=== PATIENT | female | born 1985 | race Two or more races ===

== ENCOUNTER 2018-05-14 15:13 | Emergency (ER) | payer OTHER ==
[~2018-05-14] VITALS: Ht 172.7 cm; Wt 65.8 kg
--- NOTE | 2018-05-14 15:18 | NUR ---
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
--- NOTE | 2018-05-14 15:22 | NUR ---
DR. MENDEZ AT BEDSIDE FOR EVAL.
[2018-05-14] MEDS ORDERED: IV NS 0.9% 1,000 ML BAG IV ONE (15:30)
--- NOTE | 2018-05-14 15:30 | NUR ---
PT LABS DRAWNED AND SENT TO LAB. AWAITING RESULTS.
[2018-05-14 15:32] LABS: EOSINOPHILS % (AUTO) 0.5 % (0.0-6.0); HEMATOCRIT 43 % (33-45); HEMOGLOBIN 13.8 g/dL (11.5-14.8); LYMPHOCYTES # (AUTO) 1.6 /CMM (0.8-4.8); LYMPHOCYTES % (AUTO) 30.1 % (20.0-44.0); MEAN CORPUSCULAR HGB CONC 32 g/dl (31.0-36.0); MEAN CORPUSCULAR VOLUME 82 fL (82-100); MONOCYTES # (AUTO) 0.5 /CMM (0.1-1.30); MONOCYTES % (AUTO) 9.8 % (2.0-12.0); NEUTROPHILS # (AUTO) 3.1 /CMM (1.8-8.9); NEUTROPHILS % (AUTO) 58.6 % (43.0-81.0); PLATELET COUNT (AUTO) 205 /CMM (150-450); RED BLOOD CELL COUNT(AUTO) 5.27 MIL/uL (4.0-5.2); WHITE BLOOD COUNT (AUTO) 5.3 K/uL (4.3-11.0)
--- NOTE | 2018-05-14 15:46 | NUR ---
WHEELED TO CT SCAN VIA [facility].
--- NOTE | 2018-05-14 16:08 | NUR ---
PT IS BACK FROM THE CT SCAN.
[2018-05-14] MEDS ORDERED: KETOROLAC TROMETHAMINE INJ 30 MG/ML VIAL IV ONE (16:30)
[2018-05-14] MEDS ORDERED: KETOROLAC TROMETHAMINE INJ 30 MG/ML VIAL ONE ×2 (17:03→18:12)
[2018-05-14] MEDS ORDERED: ACETAMINOPHEN ES 500 MG TABLET PO ONE (18:00)
[2018-05-14] MEDS ORDERED: ACETAMINOPHEN ES 500 MG TABLET ONE (18:05)
--- NOTE | 2018-05-14 18:19 | NUR ---
IV removed. Catheter intact and site benign. Pressure and 4x4 applied to site. No bleeding noted. Patient discharged to home in stable condition. Written and verbal after care instructions given. Patient verbalizes understanding of instruction.
[2018-05-14 18:39] VITALS: BP 128/76
== END 2018-05-14 18:40 | disposition home or self-care (01) ==
LOC: ER 15:13
DX: R55 Syncope and collapse (principal); R42 Dizziness and giddiness; R51 Headache; M54.2 Cervicalgia; F17.200 Nicotine dependence, unspecified, uncomplicated; Z60.2 Problems related to living alone
CPT/HCPCS: 36415; 70450-TC; 72050-TC; 82962-TC; 84702-TC; 85025-TC; A4606; J1885; J7030; Z7610

== ENCOUNTER 2018-08-02 21:31 | Emergency (ER) | payer OTHER ==
[~2018-08-02] VITALS: Ht 167.6 cm; Wt 79.4 kg
--- NOTE | 2018-08-02 21:40 | NUR ---
PT BIBRA C/O DIZZINESS X30MIN [employer]PER[employer] REAL [employer]STATE OFFICE. PT STATES SHE HAS HAD SIMILAR EPISODES IN PAST. PT STATES "I RANDOMLY START TO FEEL REALLY HOT AND FEEL LIKE I'M ABOUT TO PASS OUT". PT DENIES CHEST PAIN, ABDOMINAL PAIN, HEADACHE, CHANGE OF VISION, LOC, TRAUMA. PT AAOX4. RESPIRATIONS EVEN AND UNLABORED. SKIN WARM AND INTACT. VITAL SIGNS STABLE. NO ACUTE DISTRESS NOTED AT THIS TIME. PLACED IN GOWN AND ON MONITOR, WAITING MD EVALUATION
--- NOTE | 2018-08-02 22:20 | NUR ---
IV INITIATED RIGHT AC 18G. LABS DRAWN FROM SITE. [employer] AT BEDSIDE FOR COLLECTION. IV INTACT AND PATENT
--- NOTE | 2018-08-02 22:26 | NUR ---
PT ABLE TO AMBULATE TO RESTROOM. STEADY GAIT
[2018-08-02 22:29] LABS: BASOPHILS # (AUTO) 0.1 /CMM (0.0-0.2); BASOPHILS % (AUTO) 0.9 % (0.0-2.0); EOSINOPHILS % (AUTO) 0.5 % (0.0-6.0); HEMATOCRIT 41 % (33-45); HEMOGLOBIN 13.1 g/dL (11.5-14.8); LYMPHOCYTES # (AUTO) 1.1 /CMM (0.8-4.8); MEAN CORPUSCULAR HGB CONC 32 g/dl (31.0-36.0); MEAN CORPUSCULAR VOLUME 80 fL (82-100); MONOCYTES # (AUTO) 0.5 /CMM (0.1-1.30); MONOCYTES % (AUTO) 8.7 % (2.0-12.0); NEUTROPHILS # (AUTO) 4.4 /CMM (1.8-8.9); NEUTROPHILS % (AUTO) 71.9 % (43.0-81.0); PLATELET COUNT (AUTO) 200 /CMM (150-450); RED BLOOD CELL COUNT(AUTO) 5.09 MIL/uL (4.0-5.2); WHITE BLOOD COUNT (AUTO) 6.1 K/uL (4.3-11.0)
[2018-08-02] MEDS ORDERED: IV NS 0.9% 1,000 ML BAG IV ONE (22:30)
[2018-08-02 22:37] LABS: CALCIUM, SERUM 8.5 mg/dL (8.5-10.1); CREATININE 1.1 mg/dL (0.6-1.3); POTASSIUM 3.7 mmol/L (3.5-5.1)
--- NOTE | 2018-08-02 23:40 | NUR ---
Patient discharged to home in stable condition. Written and verbal after care instructions given. Patient verbalizes understanding of instruction. IV removed. Catheter intact and site benign. Pressure and 4x4 applied to site. No bleeding noted. Pt ambulatory with a steady gait
[2018-08-02 23:42] VITALS: BP 137/79
== END 2018-08-02 23:43 | disposition home or self-care (01) ==
LOC: ER 21:34
DX: R42 Dizziness and giddiness (principal); F17.200 Nicotine dependence, unspecified, uncomplicated; Z60.2 Problems related to living alone
CPT/HCPCS: 36415; 71045; 80048; 84702; 85025; 93005; 96360; 99284; A4606; J7030